=== PATIENT | male | born 1965 | race Two or more races ===

== ENCOUNTER 2022-12-16 20:40 | Inpatient (IN) | payer OTHER ==
[~2022-12-16] VITALS: Ht 170.2 cm; Wt 75.0 kg
[2022-12-16] MEDS ORDERED: ONDANSETRON HCL 4 MG/2 ML VIAL IV ONE (21:00)
[2022-12-16] MEDS ORDERED: MORPHINE SULFATE 4 MG/ML SYR/VIAL IV ONE (21:00)
[2022-12-16 21:19] LABS: Basophils # (auto) 0.1 10 ^3/uL (0-0.2); Basophils % (auto) 1.2 % (0.0-2.0); Eosinophils # (auto) 0.1 10 ^3/uL (0-0.8); Eosinophils % (auto) 1.8 % (0.0-7.0); Hematocrit 33.3 % (41.0-53.0); Hemoglobin 11.4 g/dL (13.5-17.5); Lymphocytes # (auto) 2.2 10 ^3/uL (0.4-5.4); Mean Corpuscular Hemoglobin 29.4 pg (28.0-32.0); Mean Corpuscular Hgb Conc. 34.3 g/dL (32.0-36.0); Mean Corpuscular Volume 85.6 fL (80.0-100.0); Monocytes # (auto) 0.8 10 ^3/uL (0-1.3); Monocytes % (auto) 10.2 % (0.0-12.0); Neutrophils # (auto) 4.8 10 ^3/uL (1.6-8.6); Neutrophils % (auto) 59.8 % (37.0-80.0); Nucleated Red Blood Cells % 0.1 %; Red Blood Cells 3.89 10^6/uL (4.5-5.90); Red Cell Distribution Width 13.4 % (11.8-14.3); White Blood Cell 8.1 10^3/uL (4.4-10.8)
[2022-12-16 21:28] LABS: Albumin 2.8 g/dL (3.4-5.0); Calcium 9.1 mg/dL (8.5-10.1); Magnesium 2.2 mg/dL (1.6-2.6); Potassium 3.3 mmol/L (3.5-5.1)
[2022-12-16 21:31] LABS: BUN/Creatinine Ratio 13.2 (10.0-20.0); Bilirubin, Total 0.5 mg/dL (0.2-1.0); Total Protein 7.5 g/dL (6.4-8.2)
[2022-12-16] MEDS ORDERED: HYDROcodone-ACET 10/325MG TAB PO ONE (22:45)
[2022-12-17 00:29] VITALS: BP 93/60; PULSE 89; RESP 20; TEMP 97.9; O2SAT 97
[2022-12-17 00:56] LABS: Urine Bacteria NONE SEEN /hpf (None Seen); Urine Blood Negative /uL (Negative); Urine Specific Gravity 1.016 (1.001-1.035); Urine WBC <1 /hpf (0 - 3)
[2022-12-17] MEDS ORDERED: cefTRIAXone 1GM/50ML D5W 50 ML IV ONE (01:45)
[2022-12-17] MEDS ORDERED: DexAMETHasone SOD PHOS 10MG/1ML VIAL INJ IV ONE (01:45)
[2022-12-17] MEDS ORDERED: AZITHROMYCIN 500MG/ 250ML 250 ML IV ONE (01:45)
[2022-12-17] MEDS ORDERED: ACETAMINOPHEN 325 MG TAB PO PRN (02:45)
[2022-12-17] MEDS ORDERED: HYDROcodone-ACET 5/325MG TAB PO PRN (02:45)
[2022-12-17] MEDS ORDERED: TEMAZEPAM 15 MG CAP PO PRN (02:45)
[2022-12-17] MEDS ORDERED: POTASSIUM CHL 20 Meq TABLET PO ONE (02:45)
[2022-12-17] MEDS ORDERED: ONDANSETRON HCL 4 MG/2 ML VIAL IV PRN (02:45)
[2022-12-17 03:18] VITALS: PULSE 89; RESP 18; O2SAT 96
[2022-12-17 05:41] VITALS: BP 101/64; PULSE 85; RESP 18; O2SAT 96
[2022-12-17 06:34] VITALS: O2SAT 96
[2022-12-17] MEDS: PANTOPRAZOLE 40 MG TAB PO SCH (09:48)
[2022-12-17] MEDS ORDERED: IOHEXOL 350 MG/ML 100ML IJ ONE (14:56)
[2022-12-17] MEDS: ENOXAPARIN SOD 100 MG/1 ML SYRINGE SC SCH (16:23)
[2022-12-17 19:30] VITALS: PULSE 98; RESP 20; O2SAT 95
[2022-12-17] MEDS: cefTRIAXone 1GM/50ML D5W 50 ML IV SCH (21:42)
[2022-12-17] MEDS: AZITHROMYCIN 500MG/ 250ML 250 ML IV SCH (22:51)
[2022-12-18] VITALS (12 sets, daily range): BP systolic 94–109; BP diastolic 56–67; PULSE 67–89; RESP 16–20; TEMP 97.7–98.3; O2SAT 95–100
[2022-12-18 06:03] LABS: Basophils # (auto) 0 10 ^3/uL (0-0.2); Basophils % (auto) 0.2 % (0.0-2.0); Eosinophils # (auto) 0 10 ^3/uL (0-0.8); Eosinophils % (auto) 0.2 % (0.0-7.0); Hematocrit 26.8 % (41.0-53.0); Hemoglobin 9.4 g/dL (13.5-17.5); Lymphocytes # (auto) 1.6 10 ^3/uL (0.4-5.4); Lymphocytes % (auto) 9.5 % (10.0-50.0); Mean Corpuscular Hemoglobin 29.5 pg (28.0-32.0); Mean Corpuscular Hgb Conc. 34.9 g/dL (32.0-36.0); Mean Corpuscular Volume 84.6 fL (80.0-100.0); Monocytes # (auto) 1.1 10 ^3/uL (0-1.3); Monocytes % (auto) 6.7 % (0.0-12.0); Neutrophils # (auto) 14.1 10 ^3/uL (1.6-8.6); Neutrophils % (auto) 83.4 % (37.0-80.0); Red Blood Cells 3.17 10^6/uL (4.5-5.90); Red Cell Distribution Width 13.3 % (11.8-14.3); White Blood Cell 16.9 10^3/uL (4.4-10.8)
[2022-12-18 06:08] LABS: Calcium 8.9 mg/dL (8.5-10.1); Potassium 3.5 mmol/L (3.5-5.1)
[2022-12-18 06:10] LABS: BUN/Creatinine Ratio 19.2 (10.0-20.0)
[2022-12-18] MEDS: PANTOPRAZOLE 40 MG TAB PO SCH (09:41)
[2022-12-18] MEDS: ENOXAPARIN SOD 100 MG/1 ML SYRINGE SC SCH ×2 (09:41→21:31)
[2022-12-18 11:58] LABS: INR 1.08 (0.9-1.15); Partial Thromboplastin Time 31.3 SEC (24.5-34.5)
[2022-12-18 13:07] LABS: Hepatitis C Antibody Negative (Negative)
[2022-12-18] MEDS: ALBUTEROL SULF 2.5 MG/0.5ML(0.5%) NEB SOLN NEB PRN (16:09)
[2022-12-18] MEDS: cefTRIAXone 1GM/50ML D5W 50 ML IV SCH (21:30)
[2022-12-18] MEDS: AZITHROMYCIN 500MG/ 250ML 250 ML IV SCH (21:52)
[2022-12-19] VITALS (8 sets, daily range): BP systolic 98–139; BP diastolic 47–76; PULSE 66–96; RESP 16–20; TEMP 97.8–98.1; O2SAT 95–100
[2022-12-19 06:48] LABS: Basophils # (auto) 0.1 10 ^3/uL (0-0.2); Basophils % (auto) 0.6 % (0.0-2.0); Eosinophils # (auto) 0.1 10 ^3/uL (0-0.8); Hematocrit 28.7 % (41.0-53.0); Lymphocytes # (auto) 2.4 10 ^3/uL (0.4-5.4); Lymphocytes % (auto) 25.3 % (10.0-50.0); Mean Corpuscular Hemoglobin 29.4 pg (28.0-32.0); Mean Corpuscular Hgb Conc. 34.7 g/dL (32.0-36.0); Mean Corpuscular Volume 84.8 fL (80.0-100.0); Monocytes # (auto) 0.6 10 ^3/uL (0-1.3); Monocytes % (auto) 6.6 % (0.0-12.0); Neutrophils # (auto) 6.3 10 ^3/uL (1.6-8.6); Neutrophils % (auto) 66.5 % (37.0-80.0); Nucleated Red Blood Cells % 0.1 %; Red Blood Cells 3.39 10^6/uL (4.5-5.90); Red Cell Distribution Width 13.4 % (11.8-14.3); White Blood Cell 9.5 10^3/uL (4.4-10.8)
[2022-12-19 07:22] LABS: Potassium 3.3 mmol/L (3.5-5.1)
[2022-12-19 07:27] LABS: BUN/Creatinine Ratio 16.9 (10.0-20.0); Calcium 8.5 mg/dL (8.5-10.1)
[2022-12-19] MEDS ORDERED: POTASSIUM CHL 20 Meq TABLET PO ONE (08:30)
[2022-12-19] MEDS: PANTOPRAZOLE 40 MG TAB PO SCH (09:31)
[2022-12-19] MEDS ORDERED: ENOXAPARIN SOD 80 MG/0.8ML SYRINGE SC SCH (10:00)
[2022-12-19] MEDS: APIXABAN 5 MG TAB PO SCH (21:09)
[2022-12-19] MEDS: cefTRIAXone 1GM/50ML D5W 50 ML IV SCH (21:10)
[2022-12-19] MEDS: AZITHROMYCIN 500MG/ 250ML 250 ML IV SCH (21:21)
[2022-12-20] VITALS (14 sets, daily range): BP systolic 117–125; BP diastolic 60–83; PULSE 61–110; RESP 18–22; TEMP 97.9–98.4; O2SAT 80–100
[2022-12-20 05:43] LABS: Basophils # (auto) 0.1 10 ^3/uL (0-0.2); Basophils % (auto) 0.9 % (0.0-2.0); Eosinophils # (auto) 0.1 10 ^3/uL (0-0.8); Eosinophils % (auto) 1.7 % (0.0-7.0); Hematocrit 32.1 % (41.0-53.0); Hemoglobin 11.2 g/dL (13.5-17.5); Lymphocytes # (auto) 1.8 10 ^3/uL (0.4-5.4); Lymphocytes % (auto) 26.9 % (10.0-50.0); Mean Corpuscular Hemoglobin 29.4 pg (28.0-32.0); Mean Corpuscular Volume 84.2 fL (80.0-100.0); Monocytes # (auto) 0.6 10 ^3/uL (0-1.3); Monocytes % (auto) 9.1 % (0.0-12.0); Neutrophils # (auto) 4.2 10 ^3/uL (1.6-8.6); Neutrophils % (auto) 61.4 % (37.0-80.0); Nucleated Red Blood Cells % 0.1 %; Red Blood Cells 3.81 10^6/uL (4.5-5.90); Red Cell Distribution Width 13.7 % (11.8-14.3); White Blood Cell 6.8 10^3/uL (4.4-10.8)
[2022-12-20 05:58] LABS: BUN/Creatinine Ratio 14.6 (10.0-20.0); Potassium 3.2 mmol/L (3.5-5.1)
[2022-12-20] MEDS: APIXABAN 5 MG TAB PO SCH ×2 (08:43→21:55)
[2022-12-20] MEDS: PANTOPRAZOLE 40 MG TAB PO SCH (08:43)
[2022-12-20] MEDS: ALBUTEROL SULF 2.5 MG/0.5ML(0.5%) NEB SOLN NEB PRN ×2 (09:05→16:53)
[2022-12-20] MEDS ORDERED: POTASSIUM CHL 20 Meq TABLET PO ONE (09:45)
[2022-12-20] MEDS: cefTRIAXone 1GM/50ML D5W 50 ML IV SCH (21:56)
[2022-12-20] MEDS: AZITHROMYCIN 500MG/ 250ML 250 ML IV SCH (22:01)
[2022-12-21] VITALS (9 sets, daily range): BP systolic 96–121; BP diastolic 52–70; PULSE 68–109; RESP 18–22; TEMP 97.3–98.8; O2SAT 95–98
[2022-12-21 06:24] LABS: Potassium 3.5 mmol/L (3.5-5.1)
[2022-12-21 06:30] LABS: BUN/Creatinine Ratio 18.6 (10.0-20.0); Calcium 9.1 mg/dL (8.5-10.1)
[2022-12-21] MEDS: PANTOPRAZOLE 40 MG TAB PO SCH (09:42)
[2022-12-21] MEDS: APIXABAN 5 MG TAB PO SCH ×2 (09:42→22:13)
[2022-12-21] MEDS: cefTRIAXone 1GM/50ML D5W 50 ML IV SCH (20:49)
[2022-12-21] MEDS: AZITHROMYCIN 500MG/ 250ML 250 ML IV SCH (22:13)
[2022-12-22] VITALS (7 sets, daily range): BP systolic 87–106; BP diastolic 51–60; PULSE 61–113; RESP 14–18; TEMP 97–98.7; O2SAT 90–99
[2022-12-22] MEDS: PANTOPRAZOLE 40 MG TAB PO SCH (09:04)
[2022-12-22] MEDS: APIXABAN 5 MG TAB PO SCH ×2 (09:04→21:02)
[2022-12-22] MEDS: cefTRIAXone 1GM/50ML D5W 50 ML IV SCH (21:02)
[2022-12-22] MEDS ORDERED: AZITHROMYCIN 250 MG TAB PO SCH (22:00)
[2022-12-23 05:00] VITALS: BP 99/57; PULSE 94; RESP 20; TEMP 98.6; O2SAT 99
[2022-12-23 08:00] VITALS: PULSE 69
[2022-12-23 08:30] VITALS: BP 93/50; PULSE 83; RESP 19; TEMP 97.6; O2SAT 96
[2022-12-23] MEDS: APIXABAN 5 MG TAB PO SCH (09:10)
[2022-12-23] MEDS: PANTOPRAZOLE 40 MG TAB PO SCH (09:10)
[2022-12-23] MEDS ORDERED: AZIT500T PO ×2 (09:47)
[2022-12-23] MEDS ORDERED: APIX5TAB PO ×3 (09:47→09:52)
[2022-12-23] MEDS ORDERED: AZIT-81 PO (09:52)
== END 2022-12-23 11:30 | disposition home or self-care (01) | DRG 134 ==
LOC: ER 20:40 → OVERFLOW 12-17 02:41 → CENTRAL 12-17 23:29 → TELE-CENTR 12-17 23:50
PROVIDERS: ADMIT Internal Medicine; ATTEND Internal Medicine
DX: I26.99 Other pulmonary embolism without acute cor pulmonale (principal); J96.01 Acute respiratory failure with hypoxia; J18.9 Pneumonia, unspecified organism; E44.0 Moderate protein-calorie malnutrition; E87.8 Other disorders of electrolyte and fluid balance, not elsewhere classified; I82.401 Acute embolism and thrombosis of unspecified deep veins of right lower extremity; S20.212A Contusion of left front wall of thorax, initial encounter; D64.9 Anemia, unspecified; S27.301A Unspecified injury of lung, unilateral, initial encounter; E87.6 Hypokalemia; Y35.99XA Legal intervention, means unspecified, unspecified person injured, initial encounter; X58.XXXA Exposure to other specified factors, initial encounter; Z59.00 Homelessness unspecified; Z87.442 Personal history of urinary calculi; Z87.891 Personal history of nicotine dependence; Z68.25 Body mass index [BMI] 25.0-25.9, adult; Y93.89 Activity, other specified; Y92.89 Other specified places as the place of occurrence of the external cause; Y99.8 Other external cause status
CPT/HCPCS: 36415; 71045; 71250; 71275; 80048; 80053; 81001; 83735; 83880; 84484; 85025; 85379; 85610; 85730; 86803; 87340; 93005; 93970; 94640; G0378; J0696; J1100; J2405